=== PATIENT | male | born 1975 | race Caucasian/White ===

== ENCOUNTER 2019-01-05 13:10 | Emergency (ER) | payer OTHER ==
[2019-01-05 13:17] VITALS: BP 134/75; PULSE 78; TEMP 98.1; BMI 14060.0
[2019-01-05] MEDS ORDERED: DIPHTH,PERTUSS(ACELL),TET 0.5 ML DISP.SYRIN IM ONE ×2 (13:18→14:34)
--- NOTE | 2019-01-05 13:21 | PDOC ---
Rapid Medical Evaluation Chief Complaint: Injury Time Seen by Provider: 01/05/19 13:16 Medical Evaluation: Allergies Allergy/AdvReac Type Severity Reaction Status Date / Time No Known Allergies Allergy Verified 01/05/19 13:17 Vital Signs Temp Pulse Resp BP Pulse Ox 98.1 F 78 19 134/75 98 01/05/19 13:15 01/05/19 13:15 01/05/19 13:15 01/05/19 13:15 01/05/19 13:15 01/05/19 13:19 I have performed a brief in-person evaluation of this patient. The patient presents with a chief complaint of: laceration to anterior right ankle with a metal piece. pt does not recall tetanus vaccine Pertinent physical exam findings:3cm lac to dorsum of right ankle I have ordered the following:boostrix The patient will proceed to the ED for further evaluation. Discharge Disposition - Diagnosis Laceration of right ankle without complication Qualifiers: Encounter type: initial encounter Qualified Code(s): S91.011A - Laceration without foreign body, right ankle, initial encounter - Discharge Dispostion Condition at time of disposition: Stable - Referrals - Patient Instructions - Post Discharge Activity
--- NOTE | 2019-01-05 14:59 | PDOC ---
History of Present Illness - General Chief Complaint: Injury Stated Complaint: LACERATION RT. LEG Time Seen by Provider: 01/05/19 13:16 - History of Present Illness Initial Comments: 01/05/19 14:53 43-year-old male without comorbidities presents for evaluation of a laceration on his right foot and left knee Pain. The laceration occurred today and left knee pain occurred yesterday he is not current on tetanus he states laceration occurred with a piece of sheet metal he was working with Past History - Past Medical History Allergies/Adverse Reactions: Allergies Allergy/AdvReac Type Severity Reaction Status Date / Time No Known Allergies Allergy Verified 01/05/19 13:17 COPD: No - Suicide/Smoking/Psychosocial Hx Smoking History: Never smoked Information on smoking cessation initiated: No Hx Alcohol Use: Yes (weekly) Drug/Substance Use Hx: No Review of Systems - Review of Systems Constitutional: Yes: Chills. No: Fever Musculoskeletal: Yes: Joint Pain *Physical Exam - Vital Signs Last Vital Signs Temp Pulse Resp BP Pulse Ox 98.1 F 78 19 134/75 98 01/05/19 13:15 01/05/19 13:15 01/05/19 13:15 01/05/19 13:15 01/05/19 13:15 - Physical Exam Comments: 01/05/19 14:59 The laceration about 2 cm longitudinally at the dorsum of the right ankle at the anterior joint line. Subcutaneous fat is exposed. There are no gross sensory motor deficits full range of motion of the right ankle. Left knee skin color and temperature are normal range of motion is full with mild discomfort terminal flexion no instability or gross sensorimotor deficits no medial lateral joint line tenderness or patellofemoral crepitation. There is a scant intra-articular effusion thighs and calves are soft and nontender neurovascularly intact negative straight leg raise test ED Treatment Course - Medications Given in the ED: ED Medications Discontinued Medications Generic Name Dose Route Start Last Admin Trade Name Freq PRN Reason Stop Dose Admin Diphtheria/Tetanus/Acell Pertussis 0.5 ml 01/05/19 13:18 01/05/19 14:37 Boostrix - IM 01/05/19 13:19 0.5 ml .ONCE ONE Administration Medical Decision Making - Medical Decision Making 01/05/19 14:51 The wound was anesthetized with 6 mL of 1% lidocaine aseptically. Explored to its base in a bloodless field copiously irrigated no foreign body identified. Edges were approximated with 4-0 nylon in a simple interrupted fashion. 3 sutures were used. A dry sterile dressing was placed. This was tolerated well *DC/Admit/Observation/Transfer Diagnosis at time of Disposition: Effusion, left knee Laceration of right ankle without complication Qualifiers: Encounter type: initial encounter Qualified Code(s): S91.011A - Laceration without foreign body, right ankle, initial encounter - Discharge Dispostion Disposition: HOME Condition at time of disposition: Stable Decision to Admit order: No - Referrals Referrals: Enrique Bueno DO [Staff Physician] - - Patient Instructions Printed Discharge Instructions: DI for Laceration Repair Additional Instructions: Please keep the wound clean and dry for the next 48 hours. After 48 hours he may remove the dressing and wash the area with soap and water and leave it open to air do not apply any ointments. If you are working or going outside the house cover the wound with a Band-Aid. Return to the emergency room in 10 days or sooner if problems develop. 10 days for suture removal problems would be signs and symptoms of infection such as increased redness swelling drainage or increasing pain. Follow-up with orthopedics in 2-3 days for further evaluation and treatment of your left knee pain. Data today. - Post Discharge Activity
== END 2019-01-05 15:16 | disposition home or self-care (01) ==
LOC: JERFT 13:10
PROC: 0HQKXZZ Repair Right Lower Leg Skin, External Approach (ICD-10-PCS; principal; 2019-01-05)
PROC: 3E0234Z Introduction of Serum, Toxoid and Vaccine into Muscle, Percutaneous Approach (ICD-10-PCS; 2019-01-05)
DX: S91.011A Laceration without foreign body, right ankle, initial encounter (principal); M25.462 Effusion, left knee; W45.8XXA Other foreign body or object entering through skin, initial encounter; Y93.9 Activity, unspecified; Y92.9 Unspecified place or not applicable
CPT/HCPCS: 12001-25; 90471; 90715; 99281-25

== ENCOUNTER 2019-01-15 15:48 | Emergency (ER) | payer OTHER ==
[2019-01-15 15:53] VITALS: BP 96/78; PULSE 69; TEMP 97.9; BMI 25.8
--- NOTE | 2019-01-15 16:22 | PDOC ---
Suture Removal/Wound Check HPI - History of Present Illness Chief Complaint: Suture/Staple Removal(Here) Stated Complaint: SUTURE REMOVAL Time Seen by Provider: 01/15/19 15:55 History Source: Yes: Patient, Old Records Treated at: [facility] Date of Last ED visit: 01/05/19 - Previous ED Treatment Type of procedure performed on last visit: Yes: Laceration Repair Tetanus Immunization: Yes: Given at last ED visit Antibiotics Prescribed: No Past History - Past Medical History Allergies/Adverse Reactions: Allergies Allergy/AdvReac Type Severity Reaction Status Date / Time No Known Allergies Allergy Verified 01/15/19 15:52 Home Medications: Ambulatory Orders NK [No Known Home Medication] 01/15/19 COPD: No - Immunization History Immunization Up to Date: Yes (12/2018) - Suicide/Smoking/Psychosocial Hx Smoking History: Never smoked Hx Alcohol Use: Yes (weekly) Drug/Substance Use Hx: No *Review of Systems - Review of Systems Able to Perform ROS?: Yes All Other Systems: Reviewed and Negative *Physical Exam - Vital Signs Last Vital Signs Temp Pulse Resp BP Pulse Ox 97.9 F 69 18 96/78 99 01/15/19 15:50 01/15/19 15:50 01/15/19 15:50 01/15/19 15:50 01/15/19 15:50 - Physical Exam Integumentary: positive: Normal Color, Dry, Warm, Other (Suture line well approximated and well-healed. No erythema, discharge or drainage present no lymphangitis noted.) Medical Decision Making - Medical Decision Making 01/15/19 16:19 A/P: 43-year-old male here for suture removal sutures placed 01/05 Wound appears well-healed without signs of infection 3 sutures removed without incident Patient tolerated well Discharge home Portions of this note have been documented using voice recognition software. As a result, errors may occur in the candy catcher process. Effort has been made to correct all grammatical and candy catcher error, but some may have been missed. *DC/Admit/Observation/Transfer Diagnosis at time of Disposition: Encounter for removal of sutures - Discharge Dispostion Disposition: HOME Condition at time of disposition: Stable Decision to Admit order: No - Referrals - Patient Instructions Printed Discharge Instructions: DI for Suture Removal Additional Instructions: Rest, allow completion of healing May continue using bacitracin ointment until scabs are completely resolved Keep wound covered and out of the sun for at least one year as scar tissue will picker and sorter load and unload and absorbable more sunlight causing a darker discoloration May use vitamin E, aloe, or other oils recommended for skin and scar healing - Post Discharge Activity
== END 2019-01-15 16:21 | disposition home or self-care (01) ==
LOC: JERFT 15:48
DX: Z48.817 Encounter for surgical aftercare following surgery on the skin and subcutaneous tissue (principal); Z48.02 Encounter for removal of sutures
CPT/HCPCS: 99281-25